=== PATIENT | male | born 1990 | race American Indian/Alaskan Native ===

== ENCOUNTER 2017-03-28 02:13 | Emergency (ER) | payer OTHER ==
[2017-03-28] MEDS ORDERED: NACL 0.9% 1000 ML 1,000 ML IV ONE ×3 (04:29→07:44)
--- NOTE | 2017-03-28 04:30 | Emergency Department Report ---
ED Altered Mental Status HPI - General Chief Complaint: Altered Mental Status Stated Complaint: POSS DRUG OD Time Seen by Provider: 03/28/17 04:23 Source: EMS Mode of arrival: Stretcher Limitations: Altered Mental Status - History of Present Illness Initial Comments: 26 YO MALE BROUGHT IN BY EMS SECONDARY TO AMS A POSSIBLE OVERDOSE. 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 MD Complaint: altered mental status -: unknown Severity: severe Context: alcohol abuse, drug abuse Associated Symptoms: denies other symptoms - Related Data Home Medications Medication Instructions Recorded Confirmed Last Taken Unobtainable 03/28/17 03/28/17 Unknown Allergies Allergy/AdvReac Type Severity Reaction Status Date / Time Unable to Assess Allergy Unverified 03/28/17 03:12 ED Review of Systems ROS: Stated complaint: POSS DRUG OD Other details as noted in HPI Constitutional: denies: chills, fever Eyes: denies: eye pain, eye discharge, vision change ENT: denies: ear pain, throat pain Respiratory: denies: cough, shortness of breath, wheezing Cardiovascular: denies: chest pain, palpitations Endocrine: no symptoms reported Gastrointestinal: nausea, vomiting. denies: abdominal pain, diarrhea Genitourinary: denies: urgency, dysuria Musculoskeletal: denies: back pain, joint swelling, arthralgia Skin: denies: rash, lesions Neurological: denies: headache, weakness, paresthesias Psychiatric: denies: anxiety, depression Hematological/Lymphatic: denies: easy bleeding, easy bruising ED Past Medical Hx - Social History Smoking Status: Unknown if ever smoked - Medications Home Medications: Home Medications Medication Instructions Recorded Confirmed Last Taken Type Unobtainable 03/28/17 03/28/17 Unknown History ED Physical Exam - General Limitations: Altered Mental Status General appearance: appears intoxicated - Head Head exam: Present: atraumatic, normocephalic - Eye Eye exam: Present: normal appearance, EOMI - ENT ENT exam: Present: mucous membranes moist - Neck Neck exam: Present: normal inspection, full ROM - Respiratory Respiratory exam: Present: normal lung sounds bilaterally. Absent: respiratory distress, wheezes, rales - Cardiovascular Cardiovascular Exam: Present: regular rate, normal rhythm. Absent: systolic murmur, diastolic murmur, rubs, gallop - GI/Abdominal GI/Abdominal exam: Present: soft, normal bowel sounds. Absent: distended, tenderness, guarding - Rectal Rectal exam: Present: deferred - Extremities Exam Extremities exam: Present: normal inspection, full ROM - Back Exam Back exam: Present: normal inspection, full ROM - Neurological Exam Neurological exam: Present: other (SLEEPING ) - Psychiatric Psychiatric exam: Present: flat affect - Skin Skin exam: Present: warm, dry, intact, normal color. Absent: rash ED Course Vital Signs 03/28/17 03/28/17 03/28/17 02:30 02:45 02:50 Temperature 98.1 F Pulse Rate 94 H 82 80 Respiratory 18 16 22 Rate Blood Pressure 122/88 122/88 Blood Pressure 122/88 [Right] O2 Sat by Pulse 100 Oximetry 03/28/17 03/28/17 03/28/17 03:01 03:12 03:15 Temperature Pulse Rate 95 H 79 Respiratory 20 22 15 Rate Blood Pressure 122/88 155/111 Blood Pressure [Right] O2 Sat by Pulse 10 L 100 Oximetry 03/28/17 03/28/17 03/28/17 03:30 03:45 04:30 Temperature Pulse Rate 77 86 84 Respiratory 15 15 15 Rate Blood Pressure 155/114 164/120 155/110 Blood Pressure [Right] O2 Sat by Pulse 100 100 Oximetry 03/28/17 03/28/17 03/28/17 04:31 04:33 04:35 Temperature Pulse Rate 84 83 81 Respiratory 15 16 16 Rate Blood Pressure 155/110 155/110 155/110 Blood Pressure [Right] O2 Sat by Pulse 100 100 99 Oximetry 03/28/17 03/28/17 03/28/17 04:37 04:38 04:39 Temperature Pulse Rate 82 78 80 Respiratory 15 16 16 Rate Blood Pressure 155/110 155/110 153/109 Blood Pressure [Right] O2 Sat by Pulse 99 100 99 Oximetry 03/28/17 03/28/17 03/28/17 04:41 04:43 04:45 Temperature Pulse Rate 75 79 75 Respiratory 16 15 15 Rate Blood Pressure 153/109 153/109 159/107 Blood Pressure [Right] O2 Sat by Pulse 100 99 100 Oximetry 03/28/17 03/28/17 03/28/17 04:47 04:49 04:50 Temperature Pulse Rate 73 70 73 Respiratory 15 15 15 Rate Blood Pressure 159/107 159/107 159/107 Blood Pressure [Right] O2 Sat by Pulse 99 99 100 Oximetry 03/28/17 03/28/17 03/28/17 04:51 05:07 05:09 Temperature Pulse Rate 84 131 H 143 H Respiratory 14 21 25 H Rate Blood Pressure 159/107 159/107 189/116 Blood Pressure [Right] O2 Sat by Pulse 99 100 100 Oximetry 03/28/17 03/28/17 03/28/17 05:10 05:11 05:13 Temperature Pulse Rate 143 H 134 H 131 H Respiratory 22 22 22 Rate Blood Pressure 189/116 189/116 189/116 Blood Pressure [Right] O2 Sat by Pulse 100 100 100 Oximetry 03/28/17 03/28/17 03/28/17 05:15 05:17 05:19 Temperature Pulse Rate 130 H 117 H 108 H Respiratory 21 21 19 Rate Blood Pressure 181/118 181/118 181/118 Blood Pressure [Right] O2 Sat by Pulse 100 100 100 Oximetry 03/28/17 03/28/17 03/28/17 05:21 05:23 05:25 Temperature Pulse Rate 102 H 100 H 99 H Respiratory 18 17 17 Rate Blood Pressure 181/118 181/118 181/118 Blood Pressure [Right] O2 Sat by Pulse 100 100 100 Oximetry 03/28/17 03/28/17 03/28/17 05:27 05:29 05:30 Temperature Pulse Rate 97 H 95 H 96 H Respiratory 17 16 17 Rate Blood Pressure 181/118 153/103 153/103 Blood Pressure [Right] O2 Sat by Pulse 100 100 100 Oximetry 03/28/17 03/28/17 03/28/17 05:31 05:33 05:35 Temperature Pulse Rate 95 H 90 91 H Respiratory 17 16 16 Rate Blood Pressure 153/103 153/103 153/103 Blood Pressure [Right] O2 Sat by Pulse 100 100 100 Oximetry 03/28/17 03/28/17 03/28/17 05:37 05:39 05:41 Temperature Pulse Rate 94 H 95 H 95 H Respiratory 17 17 16 Rate Blood Pressure 153/103 153/103 189/116 Blood Pressure [Right] O2 Sat by Pulse 100 98 99 Oximetry 03/28/17 03/28/17 03/28/17 05:43 05:45 05:47 Temperature Pulse Rate 90 90 88 Respiratory 17 17 17 Rate Blood Pressure 189/116 153/102 153/102 Blood Pressure [Right] O2 Sat by Pulse 100 100 Oximetry 03/28/17 03/28/17 03/28/17 05:49 05:51 05:53 Temperature Pulse Rate 91 H 89 89 Respiratory 17 17 18 Rate Blood Pressure 153/102 153/102 153/102 Blood Pressure [Right] O2 Sat by Pulse 100 100 100 Oximetry 03/28/17 03/28/17 03/28/17 05:55 05:57 05:59 Temperature Pulse Rate 87 89 88 Respiratory 17 17 17 Rate Blood Pressure 153/102 153/102 144/100 Blood Pressure [Right] O2 Sat by Pulse 100 100 100 Oximetry 03/28/17 03/28/17 03/28/17 06:00 06:01 06:03 Temperature Pulse Rate 88 86 87 Respiratory 17 17 17 Rate Blood Pressure 144/100 144/100 144/100 Blood Pressure [Right] O2 Sat by Pulse 100 100 Oximetry 03/28/17 03/28/17 03/28/17 06:05 06:07 06:09 Temperature Pulse Rate 88 87 88 Respiratory 17 17 17 Rate Blood Pressure 144/100 144/100 144/100 Blood Pressure [Right] O2 Sat by Pulse 100 100 100 Oximetry 03/28/17 06:11 Temperature Pulse Rate 98 H Respiratory 16 Rate Blood Pressure 144/100 Blood Pressure [Right] O2 Sat by Pulse 100 Oximetry - Reevaluation(s) Reevaluation #1: 03/28/17 06:51 PT IS STILL SLEEPING . I WILL GIVE MORE FLUIDS AND REPEAT THE CHEMISTRY AND THE BLOOD ALCOHOL. Reevaluation #2: 03/28/17 06:56 PT CONTINUES TO PROTECT HIS AIRWAY. - Lab Data Result diagrams: 03/28/17 04:17 03/28/17 04:17 Lab Results 03/28/17 03/28/17 03/28/17 Range/Units 03:13 03:13 03:50 WBC (4.5-11.0) K/mm3 RBC (3.65-5.03) M/mm3 Hgb (11.8-15.2) gm/dl Hct (35.5-45.6) % MCV (84-94) fl MCH (28-32) pg MCHC (32-34) % RDW (13.2-15.2) % Plt Count (140-440) K/mm3 Lymph % (Auto) (13.4-35.0) % Collier % (Auto) (0.0-7.3) % Eos % (Auto) (0.0-4.3) % Baso % (Auto) (0.0-1.8) % Lymph # (1.2-5.4) K/mm3 Collier # (0.0-0.8) K/mm3 Eos # (0.0-0.4) K/mm3 Baso # (0.0-0.1) K/mm3 Seg Neutrophils % (40.0-70.0) % Seg Neutrophils # (1.8-7.7) K/mm3 Sodium (137-145) mmol/L Potassium (3.6-5.0) mmol/L Chloride (98-107) mmol/L Carbon Dioxide (22-30) mmol/L Anion Gap mmol/L BUN (9-20) mg/dL Creatinine (0.8-1.5) mg/dL Estimated GFR ml/min BUN/Creatinine Ratio % Glucose (75-100) mg/dL POC Glucose 105 (70-105) Calcium (8.4-10.2) mg/dL Total Bilirubin (0.1-1.2) mg/dL AST (5-40) units/L ALT (7-56) units/L Alkaline Phosphatase (35-129) units/L Total Creatine Kinase (55-170) units/L CK-MB (CK-2) (0.0-4.0) ng/mL CK-MB (CK-2) Rel Index (0-4) Troponin T (0.00-0.029) ng/mL Total Protein (6.3-8.2) g/dL Albumin (3.9-5) g/dL Albumin/Globulin Ratio % TSH (0.270-4.200) mlU/mL Urine Color Yellow (Yellow) Urine Turbidity Clear (Clear) Urine pH 7.0 (5.0-7.0) Ur Specific Hastings 1.017 (1.003-1.030) Urine Protein <15 mg/dl (Negative) mg/dL Urine Glucose (UA) Neg (Negative) mg/dL Urine Ketones Neg (Negative) mg/dL Urine Blood Neg (Negative) Urine Nitrite Neg (Negative) Urine Bilirubin Neg (Negative) Urine Urobilinogen 2.0 (<2.0) mg/dL Ur Leukocyte Esterase Neg (Negative) Urine WBC (Auto) 2.0 (0.0-6.0) /HPF Urine RBC (Auto) < 1.0 (0.0-6.0) /HPF U Epithel Cells (Auto) < 1.0 (0-13.0) /HPF Urine Mucus Few /HPF Urine Opiates Screen Presumptive negative Urine Methadone Screen Presumptive negative Ur Barbiturates Screen Presumptive negative Ur Phencyclidine Scrn Presumptive negative Ur Amphetamines Screen Presumptive negative U Benzodiazepines Scrn Presumptive negative Urine Cocaine Screen Presumptive negative U Marijuana (THC) Screen Presumptive negative Drugs of Abuse Note Disclamer Plasma/Serum Alcohol (0-0.07) gm% 03/28/17 03/28/17 03/28/17 Range/Units 04:17 04:17 04:17 WBC 5.5 (4.5-11.0) K/mm3 RBC 3.90 (3.65-5.03) M/mm3 Hgb 12.9 (11.8-15.2) gm/dl Hct 38.9 (35.5-45.6) % MCV 100 H (84-94) fl MCH 33 H (28-32) pg MCHC 33 (32-34) % RDW 15.1 (13.2-15.2) % Plt Count 253 (140-440) K/mm3 Lymph % (Auto) 21.0 (13.4-35.0) % Collier % (Auto) 5.2 (0.0-7.3) % Eos % (Auto) 0.1 (0.0-4.3) % Baso % (Auto) 0.5 (0.0-1.8) % Lymph # 1.1 L (1.2-5.4) K/mm3 Collier # 0.3 (0.0-0.8) K/mm3 Eos # 0.0 (0.0-0.4) K/mm3 Baso # 0.0 (0.0-0.1) K/mm3 Seg Neutrophils % 73.2 H (40.0-70.0) % Seg Neutrophils # 4.0 (1.8-7.7) K/mm3 Sodium 150 H (137-145) mmol/L Potassium 3.3 L (3.6-5.0) mmol/L Chloride 108.6 H (98-107) mmol/L Carbon Dioxide 24 (22-30) mmol/L Anion Gap 21 mmol/L BUN 7 L (9-20) mg/dL Creatinine 0.6 L (0.8-1.5) mg/dL Estimated GFR > 60 ml/min BUN/Creatinine Ratio 12 % Glucose 115 H (75-100) mg/dL POC Glucose (70-105) Calcium 8.5 (8.4-10.2) mg/dL Total Bilirubin 0.20 (0.1-1.2) mg/dL AST 40 (5-40) units/L ALT 25 (7-56) units/L Alkaline Phosphatase 79 (35-129) units/L Total Creatine Kinase (55-170) units/L CK-MB (CK-2) (0.0-4.0) ng/mL CK-MB (CK-2) Rel Index (0-4) Troponin T (0.00-0.029) ng/mL Total Protein 7.1 (6.3-8.2) g/dL Albumin 4.3 (3.9-5) g/dL Albumin/Globulin Ratio 1.5 % TSH 1.050 (0.270-4.200) mlU/mL Urine Color (Yellow) Urine Turbidity (Clear) Urine pH (5.0-7.0) Ur Specific Hastings (1.003-1.030) Urine Protein (Negative) mg/dL Urine Glucose (UA) (Negative) mg/dL Urine Ketones (Negative) mg/dL Urine Blood (Negative) Urine Nitrite (Negative) Urine Bilirubin (Negative) Urine Urobilinogen (<2.0) mg/dL Ur Leukocyte Esterase (Negative) Urine WBC (Auto) (0.0-6.0) /HPF Urine RBC (Auto) (0.0-6.0) /HPF U Epithel Cells (Auto) (0-13.0) /HPF Urine Mucus /HPF Urine Opiates Screen Urine Methadone Screen Ur Barbiturates Screen Ur Phencyclidine Scrn Ur Amphetamines Screen U Benzodiazepines Scrn Urine Cocaine Screen U Marijuana (THC) Screen Drugs of Abuse Note Plasma/Serum Alcohol (0-0.07) gm% 03/28/17 03/28/17 Range/Units 04:17 04:17 WBC (4.5-11.0) K/mm3 RBC (3.65-5.03) M/mm3 Hgb (11.8-15.2) gm/dl Hct (35.5-45.6) % MCV (84-94) fl MCH (28-32) pg MCHC (32-34) % RDW (13.2-15.2) % Plt Count (140-440) K/mm3 Lymph % (Auto) (13.4-35.0) % Collier % (Auto) (0.0-7.3) % Eos % (Auto) (0.0-4.3) % Baso % (Auto) (0.0-1.8) % Lymph # (1.2-5.4) K/mm3 Collier # (0.0-0.8) K/mm3 Eos # (0.0-0.4) K/mm3 Baso # (0.0-0.1) K/mm3 Seg Neutrophils % (40.0-70.0) % Seg Neutrophils # (1.8-7.7) K/mm3 Sodium (137-145) mmol/L Potassium (3.6-5.0) mmol/L Chloride (98-107) mmol/L Carbon Dioxide (22-30) mmol/L Anion Gap mmol/L BUN (9-20) mg/dL Creatinine (0.8-1.5) mg/dL Estimated GFR ml/min BUN/Creatinine Ratio % Glucose (75-100) mg/dL POC Glucose (70-105) Calcium (8.4-10.2) mg/dL Total Bilirubin (0.1-1.2) mg/dL AST (5-40) units/L ALT (7-56) units/L Alkaline Phosphatase (35-129) units/L Total Creatine Kinase 122 (55-170) units/L CK-MB (CK-2) 1.3 (0.0-4.0) ng/mL CK-MB (CK-2) Rel Index 1.0 (0-4) Troponin T < 0.010 (0.00-0.029) ng/mL Total Protein (6.3-8.2) g/dL Albumin (3.9-5) g/dL Albumin/Globulin Ratio % TSH (0.270-4.200) mlU/mL Urine Color (Yellow) Urine Turbidity (Clear) Urine pH (5.0-7.0) Ur Specific [place] (1.003-1.030) Urine Protein (Negative) mg/dL Urine Glucose (UA) (Negative) mg/dL Urine Ketones (Negative) mg/dL Urine Blood (Negative) Urine Nitrite (Negative) Urine Bilirubin (Negative) Urine Urobilinogen (<2.0) mg/dL Ur Leukocyte Esterase (Negative) Urine WBC (Auto) (0.0-6.0) /HPF Urine RBC (Auto) (0.0-6.0) /HPF U Epithel Cells (Auto) (0-13.0) /HPF Urine Mucus /HPF Urine Opiates Screen Urine Methadone Screen Ur Barbiturates Screen Ur Phencyclidine Scrn Ur Amphetamines Screen U Benzodiazepines Scrn Urine Cocaine Screen U Marijuana (THC) Screen Drugs of Abuse Note Plasma/Serum Alcohol 0.20 H (0-0.07) gm% - EKG Data -: EKG Interpreted by Ok EKG shows normal: sinus rhythm, axis, intervals, QRS complexes, ST-T waves Rate: normal Interpretation: nonspecific ST-T wave kailee - Radiology Data Radiology results: report reviewed (CXR; NEGATIVE) Critical care attestation.: If time is entered above; I have spent that time in minutes in the direct care of this critically ill patient, excluding procedure time. ED Disposition Clinical Impression: Hypernatremia, Hypokalemia, Hyperglycemia Altered mental state Qualifiers: Altered mental status type: unspecified Qualified Code(s): R41.82 - Altered mental status, unspecified Alcohol intoxication Qualifiers: Complication of substance-induced condition: uncomplicated Qualified Code(s): F10.920 - Alcohol use, unspecified with intoxication, uncomplicated Disposition: DC-01 TO HOME OR SELFCARE Is pt being admited?: No Does the pt Need Aspirin: No Condition: Stable Instructions: Alcohol Intoxication (ED), Abuse of Alcohol (ED) Additional Instructions: PLEAE STOP ABUSING ALCOHOL. RETURN TO THE ER IF YOU HAVE ANY PROBLEMS. IF YOU NEED MENTAL HELP PLEASE RETURN TO THE ER OTHERWISE FOLLOW UP WITH YOUR DOCTOR IN TWO DAYS Referrals: TRACY KULKARNI MD [Primary Care Provider] - 3-5 Days
[2017-03-28 04:47] LABS: Basophils % (Auto) 0.5 % (0.0-1.8); Eosinophils % (Auto) 0.1 % (0.0-4.3); Hematocrit 38.9 % (35.5-45.6); Hemoglobin 12.9 gm/dl (11.8-15.2); Lymphocytes # (Auto) 1.1 K/mm3 (1.2-5.4); Mean Corpuscular HGB Conc 33 % (32-34); Mean Corpuscular Hemoglobin 33 pg (28-32); Mean Corpuscular Volume 100 fl (84-94); Monocytes # (Auto) 0.3 K/mm3 (0.0-0.8); Monocytes % (Auto) 5.2 % (0.0-7.3); Platelet Count 253 K/mm3 (140-440); Red Cell Distribution Width 15.1 % (13.2-15.2)
[2017-03-28 05:03] LABS: Bilirubin,Urine NEG (Negative); Blood,Urine NEG (Negative); Color,Urine Yellow (Yellow); Mucus,Urine FEW /HPF; Nitrite,Urine NEG (Negative); Protein,Urine <15 mg/dL mg/dL (Negative); RBC,Urine < 1.0 /HPF (0.0-6.0)
[2017-03-28 05:06] LABS: Alanine Aminotransferase 25 units/L (7-56); Albumin 4.3 g/dL (3.9-5); BUN/Creatinine Ratio 12; Blood Urea Nitrogen 7 mg/dL (9-20); Calcium 8.5 mg/dL (8.4-10.2); Hemolysis Index 18
[2017-03-28 05:12] LABS: Amphetamine Screen,Urine PRESUMPTIVE NEGATIVE; Benzodiazepines Screen,Urine PRESUMPTIVE NEGATIVE; Cannabinoid Screen,Urine PRESUMPTIVE NEGATIVE; Cocaine Screen,Urine PRESUMPTIVE NEGATIVE; Methadone Screen,Urine PRESUMPTIVE NEGATIVE; Opiate Screen,Urine PRESUMPTIVE NEGATIVE
--- NOTE | 2017-03-28 05:14 | Cat Scan Report ---
FINAL REPORT PROCEDURE: CT HEAD/BRAIN WO CON TECHNIQUE: Computerized tomography of the head was performed without contrast material. HISTORY: AMS COMPARISON: No prior studies are available for comparison. FINDINGS: Skull and scalp: Normal. Paranasal sinuses: Normal. Ventricles and subarachnoid spaces: Normal. Cerebrum: No evidence of hemorrhage, acute infarction or mass . Cerebellum and brainstem: No evidence of hemorrhage, acute infarction or mass. Vasculature: Normal. Comments: None. IMPRESSION: Normal Examination
[2017-03-28 06:02] LABS: Creatine Kinase MB 1.3 ng/mL (0.0-4.0)
[2017-03-28] MEDS ORDERED: ZOFRAN IV ONE (06:55)
[2017-03-28] MEDS ORDERED: K-DUR PO ONE (06:55)
[2017-03-28 09:45] VITALS: BP 143/91
== END 2017-03-28 09:36 | disposition home or self-care (01) ==
LOC: ED 02:13
DX: F10.920 Alcohol use, unspecified with intoxication, uncomplicated (principal); R41.82 Altered mental status, unspecified; E87.0 Hyperosmolality and hypernatremia; E87.6 Hypokalemia; R73.9 Hyperglycemia, unspecified
CPT/HCPCS: 36415; 70450; 80053; 80307; 81001; 82550; 82553; 82962; 84443; 84484; 85025; 93005; 93010; 96361; 96374; 99285; G0480; J2405; J7030; 80320

== ENCOUNTER 2017-06-26 09:59 | Emergency (ER) | payer OTHER ==
[2017-06-26 10:20] VITALS: BP 129/82
[2017-06-26] MEDS ORDERED: ATIVAN IV ONE (10:20)
--- NOTE | 2017-06-26 10:23 | Emergency Department Report ---
ED General Adult HPI - General Chief complaint: Seizure Stated complaint: SEIZURE Time Seen by Provider: 06/26/17 10:13 Source: patient, EMS Mode of arrival: Stretcher Limitations: No Limitations - History of Present Illness Initial comments: Patient presents to the ED EMS for seizure-like activity. Patient was in Court today when he had this suspected seizure. Patient states he normally drinks daily but has not had anything to drink in the last 2 days. Also claims he has not slept in over 24 hours due to working at night and having to go to court this morning. -: Sudden Location: head Radiation: non-radiation Severity scale (0 -10): 0 Quality: other (none) Consistency: now resolved Improves with: other (NA) Worsens with: other (NA) Associated Symptoms: denies other symptoms Treatments Prior to Arrival: none - Related Data Previous Rx's Medication Instructions Recorded Last Taken Type Amoxicillin [Amoxicillin TAB] 875 mg PO BID 7 Days #14 tablet 06/26/17 Unknown Rx Allergies Allergy/AdvReac Type Severity Reaction Status Date / Time No Known Allergies Allergy Unverified 06/26/17 10:20 ED Review of Systems ROS: Stated complaint: SEIZURE Other details as noted in HPI Comment: All other systems reviewed and negative Constitutional: denies: chills, fever Eyes: denies: eye pain, eye discharge, vision change ENT: denies: ear pain, throat pain Respiratory: denies: cough, shortness of breath, wheezing Cardiovascular: denies: chest pain, palpitations Endocrine: no symptoms reported Gastrointestinal: denies: abdominal pain, nausea, diarrhea Genitourinary: denies: urgency, dysuria Musculoskeletal: denies: back pain, joint swelling, arthralgia Skin: denies: rash, lesions Neurological: denies: headache, weakness, paresthesias Psychiatric: denies: anxiety, depression Hematological/Lymphatic: denies: easy bleeding, easy bruising ED Past Medical Hx - Social History Smoking Status: Current Every Day Smoker Substance Use Type: Alcohol - Medications Home Medications: Home Medications Medication Instructions Recorded Confirmed Last Taken Type Amoxicillin [Amoxicillin TAB] 875 mg PO BID 7 Days #14 tablet 06/26/17 Unknown Rx ED Physical Exam - General Limitations: No Limitations General appearance: alert, in no apparent distress - Head Head exam: Present: atraumatic, normocephalic - Eye Eye exam: Present: normal appearance - ENT ENT exam: Present: mucous membranes moist, other (abrasion to lower lip) - Neck Neck exam: Present: normal inspection - Respiratory Respiratory exam: Present: normal lung sounds bilaterally. Absent: respiratory distress - Cardiovascular Cardiovascular Exam: Present: normal rhythm, tachycardia. Absent: systolic murmur, diastolic murmur, rubs, gallop - GI/Abdominal GI/Abdominal exam: Present: soft, normal bowel sounds - Rectal Rectal exam: Present: deferred - Extremities Exam Extremities exam: Present: normal inspection - Back Exam Back exam: Present: normal inspection - Neurological Exam Neurological exam: Present: alert, oriented X3 - Psychiatric Psychiatric exam: Present: normal affect, normal mood - Skin Skin exam: Present: warm, dry, intact, normal color. Absent: rash ED Course Vital Signs 06/26/17 10:17 Temperature 99.0 F Pulse Rate 107 H Respiratory 14 Rate Blood Pressure 129/82 O2 Sat by Pulse 98 Oximetry ED Medical Decision Making - Lab Data Result diagrams: 06/26/17 10:22 06/26/17 10:22 - Medical Decision Making Patient refuses CT of the head even after discussing with patient the importance of the test Patient finally allow CT to be done Discussed results with the patient Critical care attestation.: If time is entered above; I have spent that time in minutes in the direct care of this critically ill patient, excluding procedure time. ED Disposition Clinical Impression: Syncope, Sinusitis Disposition: -01 TO HOME OR SELFCARE Is pt being admited?: No Does the pt Need Aspirin: No Condition: Stable Instructions: Sinusitis (ED), Syncope (ED) Prescriptions: Amoxicillin [Amoxicillin TAB] 875 mg PO BID 7 Days #14 tablet Referrals: PRIMARY CAREMD [Primary Care Provider] - 3-5 Days HIPOLITO AGUILERA MD [Staff Physician] - 3-5 Days Time of Disposition: 11:49
[2017-06-26 10:40] LABS: Basophils % (Auto) 0.4 % (0.0-1.8); Eosinophils % (Auto) 0.4 % (0.0-4.3); Hematocrit 33.5 % (35.5-45.6); Hemoglobin 11.5 gm/dl (11.8-15.2); Lymphocytes # (Auto) 1.1 K/mm3 (1.2-5.4); Lymphocytes % (Auto) 11.3 % (13.4-35.0); Mean Corpuscular HGB Conc 34 % (32-34); Mean Corpuscular Hemoglobin 33 pg (28-32); Mean Corpuscular Volume 97 fl (84-94); Monocytes # (Auto) 0.4 K/mm3 (0.0-0.8); Monocytes % (Auto) 4.2 % (0.0-7.3); Platelet Count 182 K/mm3 (140-440); Red Blood Count 3.46 M/mm3 (3.65-5.03); Red Cell Distribution Width 15.6 % (13.2-15.2)
[2017-06-26] MEDS ORDERED: VITAMIN B-1 100 MG, FOLVITE 1 MG, INFUVITE 10 ML in NACL 0.9% 1000 ML 1,000 ML IV ONE (11:00)
[2017-06-26 11:21] LABS: Alanine Aminotransferase 129 units/L (7-56); Albumin 3.8 g/dL (3.9-5); BUN/Creatinine Ratio 9; Blood Urea Nitrogen 8 mg/dL (9-20); Calcium 8.7 mg/dL (8.4-10.2); Hemolysis Index 5
--- NOTE | 2017-06-26 11:23 | Cat Scan Report ---
CT HEAD WITHOUT CONTRAST INDICATION: Seizure. COMPARISON: 03/28/2017. FINDINGS: Noncontrast head CT again demonstrates symmetric, normal ventricles and sulci. No acute infarct, hemorrhage, mass effect or midline shift. No abnormal extra-axial fluid collections. Normal posterior fossa with preserved basilar cisterns. Vertebrobasilar tortuosity again noted with right vertebral artery somewhat dominant. Normal eye globes. Mild rightward nasal septal bowing. Small air-fluid levels now noted within both maxillary sinuses. Moderate to severe bilateral ethmoid sinusitis is also new. Mild right frontal and slight bilateral sphenoid sinusitis as well. Clear mastoid air cells. Intact calvarium. Normal scalp. CONCLUSION: New bilateral maxillary mild acute sinusitis and extensive bilateral ethmoid sinusitis without acute intracranial CT abnormality, as described. Thank you for the opportunity to participate in this patient's care.
== END 2017-06-26 13:00 | disposition home or self-care (01) ==
LOC: ED 09:59
DX: R55 Syncope and collapse (principal); J32.9 Chronic sinusitis, unspecified; R56.9 Unspecified convulsions; S00.511A Abrasion of lip, initial encounter; F17.200 Nicotine dependence, unspecified, uncomplicated; X58.XXXA Exposure to other specified factors, initial encounter; Y93.89 Activity, other specified; Y99.8 Other external cause status; Y92.89 Other specified places as the place of occurrence of the external cause
CPT/HCPCS: 36415; 70450; 80053; 85025; 96365; 96366; 96375; 99284; J2060; J3411; J7030

== ENCOUNTER 2018-07-26 08:45 | Emergency (ER) | payer SELFPAY ==
[2018-07-26] MEDS ORDERED: IBUPROFEN PO ONE (09:59)
--- NOTE | 2018-07-26 10:17 | Emergency Department Report ---
HPI - General Chief Complaint: Extremity Injury, Upper Time Seen by Provider: 07/26/18 09:27 - HPI HPI: 27-year-old -Portuguese male presents to the emergency department with complaint of left hand and wrist pain and swelling since playing basketball last night. The patient fell forward with outstretched hands and arms. He has decreased range of motion secondary to the pain and the swelling. He has a past medical history of hypertension. He did not take anything for his symptoms prior to arrival. He is left-hand dominant. ED Past Medical Hx - Past Medical History Previous Medical History?: No - Surgical History Past Surgical History?: No - Social History Smoking Status: Unknown if ever smoked Substance Use Type: None - Medications Home Medications: Home Medications Medication Instructions Recorded Confirmed Last Taken Type Amoxicillin [Amoxicillin TAB] 875 mg PO BID 7 Days #14 tablet 06/26/17 Unknown Rx HYDROcodone/APAP 5-325 [[place] 1 each PO Q6HR PRN #12 tablet 07/26/18 Unknown Rx 5/325] ED Review of Systems ROS: Stated complaint: POSS BROKEN ARM Other details as noted in HPI Comment: All other systems reviewed and negative Constitutional: denies: chills, fever Eyes: denies: eye pain, vision change ENT: denies: ear pain, throat pain Respiratory: denies: cough, shortness of breath Cardiovascular: denies: chest pain, palpitations Gastrointestinal: denies: abdominal pain, vomiting Genitourinary: denies: dysuria, discharge Musculoskeletal: joint swelling, arthralgia. denies: back pain Skin: denies: rash, lesions Neurological: denies: headache, numbness Physical Exam - Physical Exam Vital Signs: Vital Signs 07/26/18 10:01 Temperature 98.8 F Pulse Rate 92 H Respiratory 18 Rate Blood Pressure 167/109 [Right] O2 Sat by Pulse 98 Oximetry Physical Exam: GENERAL: The patient is well-developed well-nourished. HENT: Normocephalic. Atraumatic. Patient has moist mucous membranes. EYES: Extraocular motions are intact. NECK: Supple. Trachea is midline. CHEST/LUNGS: Clear to auscultation. There is no respiratory distress noted. HEART/CARDIOVASCULAR: Regular. There is no tachycardia. There is no murmur. ABDOMEN: Abdomen is soft, nontender. Patient has normal bowel sounds. There is no abdominal distention. SKIN: There is moderate nonpitting swelling of the left hand and wrist NEURO: The patient is awake, alert, and oriented. The patient is cooperative. The patient has no focal neurologic deficits. The patient has normal speech. MUSCULOSKELETAL: Tenderness to palpation of the proximal left hand and wrist. Decreased range of motion of the left hand and wrist secondary to pain and swelling. Radial pulse +2 over 4 and capillary refill less than 2 seconds to the affected left upper extremity. ED Course Vital Signs 07/26/18 10:01 Temperature 98.8 F Pulse Rate 92 H Respiratory 18 Rate Blood Pressure 167/109 [Right] O2 Sat by Pulse 98 Oximetry ED Medical Decision Making - Radiology Data Radiology results: image reviewed interpreted by me: X-ray of the left hand and wrist shows a scaphoid and distal radius fracture. - Medical Decision Making The patient had a fall with outstretched hands last night and presents with pain and swelling to the left hand and wrist. X-ray appears to show a scaphoid fracture as well as a fracture of the distal radius. The patient was placed in a thumb spica splint. We had a long conversation about the importance of following up with a hand specialist within the next few days due to the scaphoid fracture so that he does not develop avascular necrosis. Patient was given a referral for [facility], who does have a hand specialist on staff, but he also understands that he does not have to see this one particular orthopedic group. He will keep the splint on until follow-up with the orthopedist. He will return to the ER with any worsening of his symptoms or any acute distress. - Differential Diagnosis fracture, dislocation, contusion, sprain, strain Critical Care Time: No Critical care attestation.: If time is entered above; I have spent that time in minutes in the direct care of this critically ill patient, excluding procedure time. ED Disposition Clinical Impression: Distal radius fracture, left Qualifiers: Encounter type: initial encounter Fracture type: closed Fracture morphology: unspecified fracture morphology Qualified Code(s): S52.502A - Unspecified fracture of the lower end of left radius, initial encounter for closed fracture Scaphoid fracture of wrist Qualifiers: Encounter type: initial encounter Scaphoid bone location: unspecified portion of scaphoid Fracture type: closed Fracture alignment: nondisplaced Laterality: left Qualified Code(s): S62.002A - Unspecified fracture of navicular [scaphoid] bone of left wrist, initial encounter for closed fracture Disposition: TO HOME OR SELFCARE Is pt being admited?: No Condition: Stable Instructions: Wrist Fracture in Adults (ED), Scaphoid Fracture (ED) Additional Instructions: You will need to follow-up with a hand surgeon/physician in the next few days without fail. Remain in the splint until follow-up. You can use ice for the swelling but do not get the splint wet. Return to the emergency Department with any worsening of your symptoms or any acute distress. You have been prescribed a medication that is sedating and therefore should not be taken prior to driving, working, and responsible for children and in no way should be mixed with alcohol of any quantity. Prescriptions: HYDROcodone/APAP 5-325 [[place] 5/325] 1 each PO Q6HR PRN #12 tablet PRN Reason: Pain Referrals: [facility] [Provider Group] - [place] Forms: Work/School Release Form(ED) Time of Disposition: 11:00
[2018-07-26] MEDS ORDERED: ZESTRIL PO ONE (10:39)
[2018-07-26 10:44] VITALS: BP 157/109
--- NOTE | 2018-07-26 10:48 | XRay Report ---
LEFT HAND, 3 views: History: Hand pain and swelling. The bony architecture is intact. Bony alignment is normal. No soft tissue abnormalities are seen. The joint spaces appear preserved. IMPRESSION: Unremarkable left-hand.
--- NOTE | 2018-07-26 10:50 | XRay Report ---
LEFT WRIST, 3 views: HISTORY: Left wrist pain and swelling. There is moderate diffuse soft tissue swelling. A linear nondisplaced fracture is suspected in the distal scaphoid bone which is best demonstrated on the lateral image. There also appears to be subtle deformity of the distal radius which extends to the radiocarpal joint. This could also represent a nondisplaced fracture. The remaining bony structures are intact. No significant joint pathology. IMPRESSION: Nondisplaced scaphoid and distal radial fractures are suspected. Please correlate for point tenderness.
== END 2018-07-26 11:15 | disposition home or self-care (01) ==
LOC: ED 08:45
DX: S52.502A Unspecified fracture of the lower end of left radius, initial encounter for closed fracture (principal); S62.002A Unspecified fracture of navicular [scaphoid] bone of left wrist, initial encounter for closed fracture; X50.1XXA Overexertion from prolonged static or awkward postures, initial encounter; Y93.67 Activity, basketball; Y92.89 Other specified places as the place of occurrence of the external cause; Y99.8 Other external cause status